=== PATIENT | female | born 1990 | race Caucasian/White ===

== ENCOUNTER 2021-11-02 10:43 | Outpatient (CLI) | payer OTHER, SELFPAY ==
--- NOTE | ~2021-11-02 | US_ITS ---
EXAMINATION: US pelvic complete w TV EXAM DATE: 11/02/2021 12:09 INDICATION: N92.0 - Excessive and frequent menstruation with regular ... TECHNIQUE: Pelvic transabdominal and transvaginal sonogram was performed. There are multiple graysca le and Doppler images available for interpretation. There is no prior study for comparison. FINDINGS: Uterus measures 8.3 x 4.8 x 3.7 cm, and is morphologically normal. Endometrial stripe lorri sures 10 mm, within normal limits. Some fluid in the endometrial canal with small echogenic region pr ojecting in measuring 5 mm in diameter by 2.5 mm in length, possible small polyp. There are nabothian cysts. There is no free pelvic fluid. Right adnexa: The ovary measures 3.5 x 2.8 x 2.7 cm with multiple peripheral follicles. Ovarian vascu lar flow confirmed. Left adnexa: The ovary measures 2.5 x 2.5 x 1.8 cm with multiple peripheral follicles. Ovarian vascul ar flow confirmed. IMPRESSION: 1. Endometrial canal fluid with small lower uterine segment endometrial polyp suspected. 2. Polycystic ovaries. Reviewed, dictated and finalized at location A.
== END 2021-11-02 10:44 | disposition home or self-care (01) ==
PROVIDERS: PCP Nurse Practitioner Family; Visit Provider Obstetrics & Gynecology
DX: N92.0 Excessive and frequent menstruation with regular cycle (principal); E28.2 Polycystic ovarian syndrome
CPT/HCPCS: 76830; 76856

== ENCOUNTER 2022-01-21 02:04 | Day surgery (SDC) | payer OTHER, SELFPAY ==
[2022-01-15 14:57] VITALS: BMI 29.2
--- NOTE | 2022-01-15 15:06 | PC.NURSE ---
Report to the Outpatient Waiting Room, entrance under the green pavilion located off [facility], at time _0845_ on date _03-31-1702_. OR Time: _1045_. - You and your visitor will be asked a series of questions to screen for COVID 19 for your protection. - Only one visitor is allowed at this time. - The patient visitor is requested to leave or wait in car when not with patient. - A mask is required within the hospital. Patients may have clear liquids (water, carbonated beverages, clear teas, apple juice) until 3 hours prior to surgery with a maximum of 20 ounces. - No food from midnight until time of surgery Take the following medications with a SIP of water the morning of surgery: None Medications to discontinue per physician None Date to take last dose Please no make-up, nail macedonian, hairspray, perfume, deodorant, or body powder the day of surgery. No jewelry (including any body piercings) or valuables the day of surgery, leave them at home. Please take a shower or bath the night before, or the morning of, surgery with an antibacterial soap. Wear comfortable, loose fitting clothing. - Jewelry must be removed prior to entering the operating room. Rings and piercings that are not removed may be cut off. - The hospital will not accept responsibility for valuables. - Please leave all valuables, including medications, at home the day of surgery. If you are going home after surgery, a licensed catshovel driver must drive you home. - NO public transportation without another adult. - We recommend that an adult stay with you for 24 hours following discharge. - We also recommend that you do not drive, make important decision, drink alcoholic beverages, or take any drugs that were not prescribed by your health care provider for at least 24 hours after your discharge time. Follow any additional instructions given to you from your surgeon. If you or anyone in your household have experienced Covid symptoms in the past week, please notify your surgeon or the nurse liaison at the phone number below for possible testing. Telephone instructions given to __Patient and asked if any additional questions and then verbalized understanding. Patient advised to call surgeon office or pre surgery nurse liaison [phone] if any additional questions.
--- NOTE | 2022-01-20 16:28 | PM.IMHP ---
H&P: HPI History of Present Illness Date/Time: 01/20/22 16:28 Chief Complaint: AUB Narrative: Juanis is a 31yo P0010, LMP December 2021 who presented as a [facility] for [employer]; pap normal. She reports for the last year or so, her periods having become painful with heavy cycles; used to be completely normal. does not want BC; planning to start trying for a baby here soon. Had normal blood work w/ PCP. Taking vitamins daily. She has taken ibuprofen 800mg which significantly helps with the cramping; would like rx. She is otherwise sexually active w/o issue. [employer] showed concerns for endometrial polyp. Review of Systems Review of Systems: All systems reviewed & are unremarkable except as noted in HPI and below (HPI) [facility] Surgical History Surgical History H/O breast augmentation H/O nasal septoplasty Family History Family History Other Alzheimer disease Social History Social History Smoking packs per day: 0.5 Smoking cigarettes per day: 10.0 Years smoked: 10 Smoking pack-years: 5.00 Smoking status: Current every day smoker Tobacco type: cigarettes and e-cigarettes/vaping Smoking end date: 01/15/17 Additional smoking assessment comments: Now vapes Alcohol intake: current Alcohol use details: socially Substance use: never Substance use type: does not use Living arrangements: with family Additional occupation/education comments: sever Gender identity (if verbalized by the patient): Female Sexual Orientation (if Verbalized by the Patient): Straight or Heterosexual Spiritual care concerns: No Meds Home Medications and Allergies Home Medications Medication Instructions Recorded Confirmed Type ibuprofen 800 mg tablet 800 mg PO TID PRN Pain 01/15/22 01/15/22 Rx Allergies Allergy/AdvReac Type Severity Reaction Status Date / Time No Known Allergies Allergy Verified 01/15/22 14:56 Assessment and Plan Assessment and plan (1) Endometrial polyp: Code(s): N84.0 - Polyp of corpus uteri Status: Acute Plan - Proceed with hysterscopy, D&C, and polypectomy as pt is trying to conceive - Risks and benefits explained in detail
--- NOTE | 2022-01-20 16:32 | WPDHPUPDATE1 ---
History and Physical Update Update Date/Time: 01/20/22 16:32 History and Physical has been reviewed, including an updated exam of the patient. There are NO changes in the patient's condition. Risks, benefits, and alternatives have been discussed and questions answered. Patient agrees to proceed with procedure.
--- NOTE | 2022-01-21 07:08 | WPDHPUPDATE1 ---
History and Physical Update Update Date/Time: 01/21/22 07:08 History and Physical has been reviewed, including an updated exam of the patient. There are NO changes in the patient's condition. Risks, benefits, and alternatives have been discussed and questions answered. Patient agrees to proceed with procedure.
[2022-01-21 08:18] VITALS: BP 104/73; PULSE 71; RESP 16; TEMP 36.5; O2SAT 100
[2022-01-21] MEDS: ACETAMINOPHEN 500 MG TABLET 1000 MG PO (08:33)
[2022-01-21] MEDS: LACTATED RINGERS 1,000 ML 30 ML IV CONT (08:33)
--- NOTE | 2022-01-21 08:43 | P.PNAN_ITS ---
Anes - Initial Pre Proc Eval Procedure: Operation Date: 01/21/22 10:00 Proposed Procedures p Hysteroscopy, Dilation and Curettage, Polypectomy - Tomasa Holt MD Date/Time: 01/21/22 08:43 Surgeon: Tomasa Holt MD Pre Op Diagnosis: menorrhaghia Patient Data Age: 31 Gender: F Height: 1.57 m Weight: 72.4 kg Last Vital Signs Temp 36.5 C 01/21/22 08:18 Pulse 71 01/21/22 08:18 Resp 16 01/21/22 08:18 BP 104/73 01/21/22 08:18 Pulse Ox 100 01/21/22 08:18 O2 Del Method Room Air 01/21/22 08:18 Allergies Allergy/AdvReac Type Severity Reaction Status Date / Time No Known Allergies Allergy Verified 01/21/22 08:21 Home Medications Medication Instructions Recorded Confirmed Type ibuprofen 800 mg tablet 800 mg PO TID PRN Pain 01/15/22 01/21/22 Rx Patient hx anesthesia problems: none Family hx anesthesia problems: none Results Review: All pre-operative results and documents have been reviewed as part of the pre- operative evaluation. [facility] Past Medical History Medical History (Updated 01/21/22 @ 08:44 by Jonathon Calderon MD) Overweight Surgical History Surgical History H/O breast augmentation H/O nasal septoplasty Family History Family History Other Alzheimer disease Social History Social History Smoking packs per day: 0.5 Smoking cigarettes per day: 10.0 Years smoked: 10 Smoking pack-years: 5.00 Smoking status: Current every day smoker Tobacco type: cigarettes and e-cigarettes/vaping Smoking end date: 01/15/17 Additional smoking assessment comments: Now vapes Alcohol intake: current Alcohol use details: socially Substance use: never Substance use type: does not use Living arrangements: with family Additional occupation/education comments: sever Gender identity (if verbalized by the patient): Female Sexual Orientation (if Verbalized by the Patient): Straight or Heterosexual Spiritual care concerns: No Anes - Eval Final PreProcedure Day of Procedure 01/21/22 08:43 Patient weight: overweight Heart: regular rate and rhythm Lungs: clear to auscultation Airway: Mallampati scale class II Neurological: alert and oriented Last oral intake: >/= 8 hours ASA classification: II Emergent: no Anesthetic plan: proceed Anesthesia type and monitoring: general GIVS and standard monitoring Results Review: All pre-operative results and documents have been reviewed as part of the pre- operative evaluation. Informed Consent: The patient's anesthetic plan and its attendant risks and benefits were discuss ed with the patient/family/POA. Questions were solicited and answers provided to the satisfaction of the patient/family/POA.
[2022-01-21] MEDS: KETOROLAC 30 MG/ML VIAL (*BKC) IV PUSH (09:59)
--- NOTE | 2022-01-21 09:59 | W.PM.PROC2 ---
Procedure Note - Detailed Date of Procedure 01/21/22 Pre-op Diagnosis menorrhaghia Post-op Diagnosis Same Procedure Performed Hysteroscopy with dilation and curettage Surgeon Tomasa Holt MD Anesthesia MAC Findings Uterus 7cm; stenotic os initially; diffusely thickened endometrium throughout; initially unable to see the right tubal ostia but able to visualize bilateral tubal ostia after curettage. Good hemostasis Description of Procedure Juanis was taken to the operating room where she was placed under sedation without complications. She was then prepped and draped in the usual sterile fashion in the dorsal lithotomy position with her legs in low Dino stirrups. A time-out was performed and no preoperative antibiotics were indicated. A bivalve speculum was placed within the vagina where the cervix was easily identified. The anterior lip of the cervix was grasped with single-tooth tenaculum. The cervix was then attempted to be sounded however the cervix was found to be stenotic. Using the smallest dilator available, the cervix was serially dilated to then allow for the hysteroscope. The hysteroscope was advanced into the uterus where diffusely thickened endometrium was noted throughout. The left tubal ostia was visualized, however the right was not visualized initially. Decision was made to proceed with a gentle curettage. The curettage was performed without complication with an adequate sample obtained. The hysteroscope was once again advanced into the uterus where a normal endometrium and the bilateral tubal ostia were then visualized. Good hemostasis was noted. All instruments were removed from the vagina. Sponge, lap, instrument, needle counts were correct at the end the procedure. Patient was awoken from anesthesia and taken to recovery in stable condition with plans of same-day discharge home. Estimated Blood Loss 5 IV Fluids 50 ((HSC fluid deficit)) Pathology Yes (endometrial curettings) Complications No immediate complications Condition Stable Disposition Same day [facility] Billing Surgery - Charge Forward: Surgery Billing
[2022-01-21 10:01] VITALS: BP 108/70; PULSE 74; RESP 14; O2SAT 99
[2022-01-21 10:30] VITALS: BP 108/70; PULSE 60; RESP 20
[2022-01-21 11:00] VITALS: BP 113/68; PULSE 72; RESP 20
== END 2022-01-21 11:05 | disposition home or self-care (01) ==
PROVIDERS: PCP Nurse Practitioner Family; Visit Provider Obstetrics & Gynecology
PROC: 0U5B8ZZ Destruction of Endometrium, Via Natural or Artificial Opening Endoscopic (ICD-10-PCS; CPT 58563; principal; 2022-01-21 10:00)
DX: N84.0 Polyp of corpus uteri (principal); N88.2 Stricture and stenosis of cervix uteri; F17.210 Nicotine dependence, cigarettes, uncomplicated; F17.290 Nicotine dependence, other tobacco product, uncomplicated
CPT/HCPCS: 58558; 88305; A9270; J1885; J2250; J2704; J3010; J7030; J7120

== ENCOUNTER 2024-03-01 10:40 | Outpatient (CLI) | payer OTHER, SELFPAY ==
--- NOTE | ~2024-03-01 | MMUS_ITS ---
EXAMINATION: MM diag john implant BI w tigist, US breast LT limited HISTORY: Palpable left breast lump TECHNIQUE: Additional 3-D tomosynthesis images of the breasts were performed and synthetic 2-D images were generated. CAD analysis was submitted and interpreted. High resolution Limited left breast ultr asound was performed. COMPARISON: No prior studies for comparison. BREAST PARENCHYMAL COMPOSITION: Not dense: There are scattered areas of fibroglandular density. FINDINGS: MAMMOGRAPHIC FINDINGS: There are bilateral subpectoral implants. There are no suspicious masses, calcifications or sap hana architect ural distortion in either breast to suggest malignancy. ULTRASOUND: Limited left breast ultrasound: At 2:00, 12 cm from the nipple in the area of palpable concern there is heterogeneous echotexture. There is a focal encapsulated oval hypoechoic mass with internal striat ions which may represent normal fibroglandular content or benign mass. No significant internal vascul arity. This focal area of hypoechoic soft tissue measures approximately 1.9 cm in length. IMPRESSION: 1. Probable benign oval hypoechoic 1.9 cm structure which may represents a benign mass (i.e. lymph no de or lipoma) or normal superimposed fibroglandular tissue. 2. Recommend 6 month follow-up Limited left breast ultrasound. BI-RADS category 3, probably benign findings. Reviewed, dictated and finalized at location B. IMPRESSION: 1. Probable benign oval hypoechoic 1.9 cm structure which may represents a drew gn mass (i.e. lymph node or lipoma) or normal superimposed fibroglandular tissu e. 2. Recommend 6 month follow-up Limited left breast ultrasound. BI-RADS category 3, probably benign findings.
== END 2024-03-01 10:41 | disposition home or self-care (01) ==
LOC: ANHIMG 10:42
PROVIDERS: PCP Physician Assistant; Visit Provider Obstetrics & Gynecology
DX: N63.20 Unspecified lump in the left breast, unspecified quadrant (principal); R92.8 Other abnormal and inconclusive findings on diagnostic imaging of breast
CPT/HCPCS: 76642; 77062; 77066; G0279

== ENCOUNTER 2024-04-19 13:10 | Outpatient (CLI) | payer OTHER, SELFPAY ==
[2024-04-19 14:00] LABS: Beta HCG Quantitative < 2.39 mIU/ML
[2024-04-21 02:59] LABS: Progesterone 10.8 ng/mL
== END 2024-04-19 13:11 | disposition home or self-care (01) ==
LOC: ANHLAB 13:11
PROVIDERS: PCP Physician Assistant; Visit Provider Obstetrics & Gynecology
DX: E28.2 Polycystic ovarian syndrome (principal)
CPT/HCPCS: 36415; 84144; 84702